=== PATIENT | female | born 1960 | race African-American/Black ===

== ENCOUNTER 2020-01-26 05:42 | Day surgery (SDC) | payer OTHER ==
[~2020-01-26] VITALS: Ht 162.6 cm; Wt 60.8 kg
[~2020-01-26 05:42] MED LIST: CALC-71 PO; TRIA1CAP3 PO
[2020-01-26] MEDS ORDERED: ceFAZolin SODIUM IV Push 1 GM VIAL. IVP PRN (06:00)
[2020-01-26] MEDS ORDERED: LIDOCAINE 2% PF 5 ML VIAL. ONE (06:39)
[2020-01-26] MEDS ORDERED: ONDANSETRON PF 4 MG/2 ML VIAL. ONE (06:39)
[2020-01-26] MEDS ORDERED: LIDOCAINE 2% TOPICAL JELLY 5GM TUBE. TP ONE (06:39)
[2020-01-26] MEDS ORDERED: fentaNYL PF VIAL 100 MCG/2 ML VIAL ONE ×2 (06:39→08:27)
[2020-01-26] MEDS ORDERED: PROPOFOL 20 ML IV ONE (06:39)
[2020-01-26] MEDS ORDERED: DEXAMETHASONE SOD PHOS 4 MG/ML VIAL ONE (06:39)
[2020-01-26] MEDS ORDERED: BUPIVACAINE MPF 0.5% 30 ML VIAL. ONE (06:57)
[2020-01-26] MEDS ORDERED: methylPREDNISolone ACETATE 80 MG/ML VIAL. ONE (06:57)
[2020-01-26] MEDS ORDERED: fentaNYL PF VIAL 100 MCG/2 ML VIAL IV PRN ×2 (07:00)
[2020-01-26] MEDS ORDERED: HYDROmorphone 2 MG/ML VIAL IV PRN (07:00)
[2020-01-26] MEDS ORDERED: MORPHINE SULFATE 2 MG/ML VIAL. IV PRN (07:00)
[2020-01-26] MEDS ORDERED: ONDANSETRON PF 4 MG/2 ML VIAL. IV PRN (07:00)
[2020-01-26] MEDS ORDERED: IV RINGERS,LACTATED 1000ML 1,000 ML IV SCH (07:00)
[2020-01-26] MEDS ORDERED: PROCHLORPERAZINE 10 MG/2 ML VIAL. IV PRN (07:00)
[2020-01-26] MEDS ORDERED: SEVOFLURANE 31 TO 60 MINUTES. IH ONE (07:52)
--- NOTE | 2020-01-26 08:08 | DISCH ---
DISCHARGE INSTRUCTIONS Condition on Discharge Condition on Discharge: Stable Activity After Discharge Activity Instructions for Disc: Other ROM activity Other activity instructions: wiggle fingers Bathing Instructions: Shower-keep dressing dry Weight Bearing Status after Di: As tolerated Diet after Discharge Diet after Discharge: Regular Wound Incision Care Wound/Incision Care: Ice to area for comfort, Keep wound/cast CDI, Keep wound elevated, Change dressing Other wound/incision instructi: change dressing in [address] after DC Call your doctor for: Concerns you may have Follow-Up Follow up with: Sally in 2 wks CHANDANA ELMORE II, MD Jan 26, 2020 08:08
--- NOTE | 2020-01-26 08:12 | PDOC4 ---
Operative Note Operative Note Date of procedure: 01/26/2020 Surgeon: Manuel Elmore Asst.: Dustin Hunt Preoperative diagnosis: Right third digit cyst Right knee DJD Postoperative diagnoses: Same Procedures performed: #1 right finger cyst excision #2 right knee injection with Depo-Medrol and local anesthetic Anesthesia: Gen. Complications: None Blood loss: 10 mL Findings: Semisolid lobulated cyst arising from the flexor tendon sheath Specimens: Cyst sent to pathology Tourniquet time: 60 minutes Reason for procedure: Patient is very pleasant 59-year-old female who had seen in clinic with complaints of right third digit pain. Clinical and radiographic examination were consistent with the above preoperative diagnoses and after discussion of the risks, benefits, and alternatives, she elected to proceed with surgery. Description of procedure: Patient was greeted in the preoperative area by myself for the correct extremity was verified and marked. Right third digit and right knee were marked. She was taken back to the operative suite, antibiotic started as she was brought back. Once in the operative room, she was transferred gently supine to the operative room table and secured to bed with all pressure points padded and had successful induction of a general anesthetic. I then prepped her superolateral right knee and injected her right knee with Depo-Medrol and local anesthetic through a superolateral portal. The area was cleansed and dried and a sterile dressing was applied. The right upper extremity was then prepped and draped in her usual sterile fashion after applying a nonsterile tourniquet. We then conductor standard preoperative timeout. I then exsanguinated the extremity with an Esmarch and insufflated tourniquet to 250 mmHg. After this, I fashioned a V-shaped incision centered over the palpable cyst area and dissected subcutaneous cutaneous tissue with tenotomies, using bipolar cautery for hemostasis. Identified the cyst and using careful dissection and loupe magnific ation dissected the adherent tissue from the cyst, taking care not to injure the digital nerve which was abutting the cyst on the radial side. Identified the stalk going to the flexor tendon sheath and delivered the cyst from the operative field and sent for specimen. I then excised the rest of the stalk and cauterized around this area. Tourniquet was then let down and bleeders were cauterized. The wound was thoroughly irrigated out. Simple interrupted 3-0 nylon was used to close skin. We then placed Xeroform, bulky amount of gauze, soft roll and an Daniele wrap. She tolerated surgery well. No complications. All counts were correct 2 prior to wound closure. At the conclusion, the patient was awakened from anesthesia and transferred gently supine to the recovery room cart and taken to PACU in a stable and extubated condition. Postoperative plan is to encourage active range of motion of the digits. Wound care was given and written form and discussed with her family present. I will see her back in 2 weeks, sooner should a problem arise. MANUEL ELMORE II, MD Jan 26, 2020 08:12
[2020-01-26] MEDS ORDERED: DOCU-109 PO (08:26)
[2020-01-26] MEDS ORDERED: HYDR-3164 PO (08:27)
[2020-01-26] MEDS ORDERED: ONDA8TAB9 PO (08:27)
[2020-01-26] MEDS ORDERED: HYDROcodone/APAP 5/325MG 1 TAB TABLET PO ONE ×2 (08:30)
[2020-01-26 08:40] VITALS: BP 158/83
--- NOTE | 2020-01-28 10:07 | PATHOLOGY ---
[facility] Accession Number: [id number] . 01 Material submitted: . finger - RIGHT THIRD DIGIT CYST. Modifiers: right, third . 01 Clinical history: . Cyst . 02 Diagnosis: Tenosynovial tissue, third digit right hand lesion excision: - Giant cell tumor of tendon sheath, localized type. . (JPM/db; 01/27/2020) LBQ 01/28/2020 0942 Local . 02 Comment: There is no evidence of malignancy. . 02 Electronically signed: . Dontae Low MD, Pathologist NPI- [id number] . 01 Gross description: . The specimen is received in formalin, labeled "Maria Antonia Garcia, right third digit cyst". Received is a segment of xtyc-[id number]-aneita-salinas, firm tissue measuring 1.4 x 1.2 x 0.6 cm in greatest dimensions. Sectioning reveals yellow-salinas, homogenous cut surfaces. The specimen is trisected and entirely submitted in cassette A1. ([facility]; 01/26/2020) QAC/QAC 01/26/2020 1751 Local . 02 Pathologist provided ICD-10: D48.1 . 02 CPT . 863929 Specimen Comment: A courtesy copy of this report has been sent to [phone], [phone] Specimen Comment: [id number] Specimen Comment: Report sent to / DR BYNUM Performed at: 01 [facility] [address], [place] [id number] MD Alejandro Whitehead MD Phone: [phone] Performed at: 02 [facility] [address], [place] [id number] MD Dontae Low MD Phone: [phone]
== END 2020-01-26 09:35 | disposition home or self-care (01) ==
LOC: SURG 05:42
PROVIDERS: ATTEND Orthopaedic Surgery Sports Medicine
DX: M17.11 Unilateral primary osteoarthritis, right knee (principal); M79.89 Other specified soft tissue disorders; M67.843 Other specified disorders of tendon, right hand; I10 Essential (primary) hypertension; Z90.710 Acquired absence of both cervix and uterus; Z87.891 Personal history of nicotine dependence; Z87.39 Personal history of other diseases of the musculoskeletal system and connective tissue; Z72.89 Other problems related to lifestyle
CPT/HCPCS: 20610; 26160; 88305; A7015; J0690; J1040; J1100; J2001; J2405; J2704; J3010; J3490; A4461